=== PATIENT | female | born 1950 | race Two or more races ===

== ENCOUNTER 2017-12-26 17:24 | Emergency (ER) | payer MEDICARE, OTHER ==
[~2017-12-26] VITALS: Ht 154.9 cm; Wt 77.0 kg
[2017-12-26] MEDS ORDERED: ipratropium/albuterol 3ml nebule NEB ONE (17:55)
[2017-12-26] MEDS ORDERED: dexamethasone 4mg tablet PO ONE (17:55)
[2017-12-26] MEDS ORDERED: DOXY100C43 PO (18:29)
[2017-12-26] MEDS ORDERED: PRED5TAB PO (18:29)
[2017-12-26 19:17] VITALS: BP 130/65
== END 2017-12-26 19:18 | disposition home or self-care (01) ==
LOC: ER 17:25
DX: J20.9 Acute bronchitis, unspecified (principal); J32.9 Chronic sinusitis, unspecified; J45.909 Unspecified asthma, uncomplicated; Z88.5 Allergy status to narcotic agent; Z79.899 Other long term (current) drug therapy
CPT/HCPCS: 71046; 94640; 94760; 99284; J8540

== ENCOUNTER 2018-01-04 17:34 | Emergency (ER) | payer MEDICARE, OTHER ==
[~2018-01-04] VITALS: Ht 154.9 cm; Wt 79.9 kg
[~2018-01-04 17:34] MED LIST: DOXY100C43 PO; PRED5TAB PO
[2018-01-04 17:55] VITALS: BP 147/89
== END 2018-01-04 20:21 | disposition home or self-care (01) ==
LOC: ER 17:35
DX: J20.9 Acute bronchitis, unspecified (principal); J45.909 Unspecified asthma, uncomplicated; Z88.5 Allergy status to narcotic agent
CPT/HCPCS: 99281

== ENCOUNTER → 2023-08-23 | Emergency (ER) | payer MEDICARE, OTHER ==
[~2023-08-23] VITALS: Ht 152.4 cm; Wt 80.2 kg
[~2023-08-23] MED LIST changes: +BUPIVAcaine/PF 2.5 mg/ml (0.25%) 30ml vial IJ ONE; -DOXY100C43 PO; +HYDR-3965 PO; +LIDOcaine 1% 30ml preserv. free vial SQ STA
[2023-08-23 12:03] VITALS: BP 161/88; PULSE 87; RESP 16; TEMP 98.1; O2SAT 95
== END | disposition home or self-care (01) ==
LOC: ER 10:13
DX: S52.532A Colles' fracture of left radius, initial encounter for closed fracture (principal); J45.909 Unspecified asthma, uncomplicated; Z72.89 Other problems related to lifestyle; Z79.899 Other long term (current) drug therapy; Z88.8 Allergy status to other drugs, medicaments and biological substances; X50.0XXA Overexertion from strenuous movement or load, initial encounter; Y93.89 Activity, other specified; Y92.89 Other specified places as the place of occurrence of the external cause; Y99.8 Other external cause status
CPT/HCPCS: 25605; 73100; 73110; 99284; A6222; A4565